=== PATIENT | male | born 1990 | race Caucasian/White ===

== ENCOUNTER 2017-01-18 14:18 | Emergency (ER) | payer OTHER | END 2017-01-18 15:35 | disposition home or self-care (01) | DX: M62.838 Other muscle spasm (principal); X50.0XXA Overexertion from strenuous movement or load, initial encounter; Y93.B2 Activity, push-ups, pull-ups, sit-ups; R03.0 Elevated blood-pressure reading, without diagnosis of hypertension ==

== ENCOUNTER 2017-05-15 14:47 | Emergency (ER) | payer OTHER ==
--- NOTE | 2017-05-15 18:24 | CT Preliminary Report ---
Exam: CT Orbits W/O IMPRESSION: 1. Acute left orbital floor fracture with orbital fat extending through the fracture into the left ma xillary sinus, the fat measures 1.6 x 0.5 x 0.9 cm. This acute fracture extends through the anterior superior left maxillary sinus wall with the fracture fragment mildly displaced anteriorly. [facility] SITE ID: [id number]
--- NOTE | 2017-05-15 18:27 | CT Report ---
EXAM: CT ORBITS WITHOUT CONTRAST EXAM DATE: 05/15/2017 06:00 PM. CLINICAL HISTORY: Elbow to Left face, inferior orbit pain and cheek numbness. COMPARISONS: None. TECHNIQUE: Thin-section axial images were acquired of the face without contrast. Post-processing: Cor onal and sagittal reformats. Other: None. In accordance with CT protocol optimization, one or more of the following dose reduction techniques w ere utilized for this exam: automated exposure control, adjustment of mA and/or KV based on patient s ize, or use of iterative reconstructive technique. FINDINGS: Bones: Acute left orbital floor fracture with orbital fat extending through the fracture into the lef t maxillary sinus, the fat measures 1.6 x 0.5 x 0.9 cm. This acute fracture extends through the anter ior superior left maxillary sinus wall with the fracture fragment mildly displaced anteriorly. The le ft extraocular muscles do not appear involved with the fracture. Bilateral globes appear intact. Temporomandibular Joints: The temporomandibular joints are symmetric and normally located. Sinuses: Minimal bilateral maxillary sinus mucosal thickening IMPRESSION: 1. Acute left orbital floor fracture with orbital fat extending through the fracture into the left ma xillary sinus, the fat measures 1.6 x 0.5 x 0.9 cm. This acute fracture extends through the anterior superior left maxillary sinus wall with the fracture fragment mildly displaced anteriorly. [facility] Referring Provider Line: [phone] SITE ID: [id number]
--- NOTE | 2017-05-15 19:08 | ED Physician Documentation ---
History of Present Illness - Stated complaint Stated Complaint: EYE INJ/BLURRY VISION - Chief complaint Chief Complaint: Heent - Additonal information Additional information: hx from pt 26 [address] [place] male elbow to eye laying basketball a month ago since then continued inf orrbit pain and numbness to cheek and some "shaking" vision when looking inf and lateral has not sught care at [facility] for same did online research and is concerned about a orbit fx Review of Systems Eyes: denies: Loss of vision (but chnage of vision) Ears: denies: Drainage/discharge Nose: denies: Epistaxis Neurologic: denies: Headache PD PAST MEDICAL HISTORY - Past Medical History Past Medical History: No - Past Surgical History Past Surgical History: No - Present Medications Home Medications: Ambulatory Orders Medication Instructions Recorded Confirmed Amox/Clav 875/125 [Augmentin] 1 each PO Q12H #20 tablet 05/15/17 - Allergies Allergies/Adverse Reactions: Allergies Allergy/AdvReac Type Severity Reaction Status Date / Time No Known Drug Allergies Allergy Verified 05/15/17 15:00 - Social History Does the pt smoke?: No Smoking Status: Never smoker Does the pt drink ETOH?: Yes Does the pt have substance abuse?: No - Immunizations Immunizations are current?: Yes - POLST Patient has POLST: No PD ED PE NORMAL - Vitals Vital signs reviewed: Yes - HEENT HEENT: PERRL, EOMI, Other (no proptosis, TTP inf orbit s step off, slightly dec sensation to L cheek, no septal deviation, mid face stable, nl bite, no hemotympanum or tsai sign) - Cardiac Cardiac: RRR - Respiratory Respiratory: No respiratory distress, Clear bilaterally - Neuro Neuro: Alert and oriented X 3, urban and regional planner 2-12 intact, No motor deficit, No sensory deficit, Normal speech Results - Vitals Vitals: Vital Signs - 24 hr 05/15/17 14:57 Temperature 36.7 C Heart Rate 84 Respiratory 16 Rate Blood Pressure 140/84 H O2 Saturation 97 Oxygen O2 Source Room air - Rads (name of study) CT orbits Radiology: See rad report (acute left orbital floor fracture woth orbital fat extending through the fracture into the left maxillary sinus, fat measures 1.6 X 0.5 X 0.9 cm, fx extends through ant superior left maxiallry sinus wall with mild displacement) PD MEDICAL DECISION MAKING - ED course ED course: limited bedside sono did not show retinal tear Departure - Departure Disposition: 01 Home, Self Care Clinical Impression: Orbit fracture Qualifiers: Encounter type: initial encounter Fracture type: closed Qualified Code(s): S02.80XA - Fracture of other specified skull and facial bones, unspecified side , initial encounter for closed fracture Condition: Good Instructions: ED Fx Face Follow-Up: [facility] [Provider Group] Prescriptions: Amox/Clav 875/125 [Augmentin] 1 each PO Q12H #20 tablet Comments: You have a fracture of you left inferior orbit extending into your sinus with some displacement I have prescribed antibiotics to prevent the sinus bacteria from infecting your orbit Please avoid blowing your nose and sneezing because this will force air from the sinus into your orbit Follow up with [address] tomorrow for a referral to ENT or a maxillo- facial specialist - take the disk with your images to your appointment And please get your blood pressure rechecked - it was high today
[2017-05-15] MEDS ORDERED: AMOX/CLAV 875 MG/125 MG TABLET PO ONE (19:27)
[2017-05-15] MEDS ORDERED: AMOX/CLAV 875 MG/125 MG TABLET PO STA (19:27)
[2017-05-15 19:36] VITALS: BP 109/72
== END 2017-05-15 19:37 | disposition home or self-care (01) ==
LOC: ED 14:47
DX: S02.32XA Fracture of orbital floor, left side, initial encounter for closed fracture (principal); W50.0XXA Accidental hit or strike by another person, initial encounter; Y93.67 Activity, basketball
CPT/HCPCS: 70480; 99282; 99283; A9270